=== PATIENT | female | born 1975 | race Caucasian/White ===

== ENCOUNTER → 2017-04-13 | Outpatient (REF) | payer BC | LOC: M LAB REF 19:34 | PROVIDERS: ATTEND Physician Assistant | DX: J02.9 Acute pharyngitis, unspecified (principal) ==

== ENCOUNTER → 2017-07-28 | Outpatient (REF) | payer BC | LOC: M LAB REF 09:04 | PROVIDERS: ATTEND Physician Assistant | DX: J02.9 Acute pharyngitis, unspecified (principal) ==

== ENCOUNTER → 2017-12-25 | Outpatient (CLI) | payer OTHER | LOC: M WHC 12:49 | DX: Z12.31 Encounter for screening mammogram for malignant neoplasm of breast (principal) ==

== ENCOUNTER 2019-02-01 16:58 | Emergency (ER) | payer BC, OTHER ==
[~2019-02-01] VITALS: Ht 160 cm; Wt 77.3 kg
[2019-02-01 16:58] VITALS: BP 128/77
[2019-02-01] MEDS ORDERED: IBUPROFEN 800 MG TAB PO ONE (18:00)
--- NOTE | 2019-02-02 07:50 | REP ---
LEFT ANKLE, FOUR VIEWS: There is no evidence of an acute fracture, dislocation or intrinsic bone disease. IMPRESSION: No fracture or dislocation. Electronically Signed by Jimi Rose MD 02/02/2019 05:23 P
== END 2019-02-01 18:31 | disposition home or self-care (01) ==
LOC: M ED 16:58
DX: S90.812A Abrasion, left foot, initial encounter (principal); S93.402A Sprain of unspecified ligament of left ankle, initial encounter; W10.8XXA Fall (on) (from) other stairs and steps, initial encounter; Y92.018 Other place in single-family (private) house as the place of occurrence of the external cause; Z88.2 Allergy status to sulfonamides

== ENCOUNTER → 2019-03-10 | Outpatient (CLI) | payer BC ==
--- NOTE | 2019-03-10 14:21 | REPMRS ---
Patient History The patient states she has not had a clinical breast exam in over a year. Family history of endometrial cancer at age 40 in mother, pancreatic cancer at age 55 in father. Took hormonal contraceptives for 17 years. Digital Woman Screen Mammo: March 10, 2019 - Exam #: [id number] Bilateral CC and MLO view(s) were taken. Technologist: Ramona Carlos, Technologist Prior study comparison: December 25, 2017, digital woman screen mammo performed at [facility]. FINDINGS: The breast tissue is extremely dense which could obscure a lesion on mammography. There is an extremely dense symmetrical pattern of residual fibroglandular tissue. There has been no change in the appearance of the mammogram from the previous studies. There is no interval development of dominant mass, archetectural distortion, or microcalcific cluster suggestive of malignancy. 3-D tomosynthesis shows no additional findings. Assessment: BI-RADS/ACR category 1 mammogram. Negative Mammogram. Recommendation Routine screening mammogram of both breasts in 1 year (for women over age 40). This patient's Lifetime Breast Cancer RIsk is estimated at 10.3 %. This mammogram was interpreted with the aid of an FDA-approved computer-aided dectection system. Electronically Signed By: Gregory Miguel MD 03/10/19 [id number]
== END ==
LOC: M WHC 13:29
PROVIDERS: ATTEND Nurse Practitioner Women's Health
DX: Z12.31 Encounter for screening mammogram for malignant neoplasm of breast (principal)

== ENCOUNTER → 2020-03-11 | Outpatient (REF) | payer OTHER | LOC: M SFHCWAGY 18:18 | PROVIDERS: ATTEND Nurse Practitioner Family | DX: Z12.4 Encounter for screening for malignant neoplasm of cervix (principal); Z01.419 Encounter for gynecological examination (general) (routine) without abnormal findings ==

== ENCOUNTER → 2020-03-11 | Outpatient (CLI) | payer OTHER ==
--- NOTE | 2020-03-11 12:33 | REP ---
BILATERAL MAMMOGRAM WITH 3D TOMOSYNTHESIS: No family history of breast cancer. [facility] lifetime risk of breast cancer 10.2%. Comparison mammogram 03/10/2019 and 12/25/2017. Breast parenchyma is heterogeneously dense bilaterally. Volpara breast density is C. I suspect a new nodule in the lateral aspect of the right breast at about 9-o'clock position in the third of the breast. This measures about 1.3 cm in diameter. Otherwise no definite new mass is seen and there are no clustered microcalcifications. IMPRESSION: ACR 0 incomplete. Suspect new nodule right breast laterally at about the 9-o'clock position, 1.3 cm in diameter. Recommend spot compression views with ultrasound to further evaluate. This mammogram was interpreted with the aid of an FDA-approved computer-aided detection system. A. Negative x-ray reports should not delay biopsy if a dominant or clinically suspicious mass is present. B. Four to eight percent of cancers are not identified by x-ray. C. Adenosis and dense breasts may obscure an underlying neoplasm. The patient states she/he had a clinical breast exam in February 2020. The patient letter being requested is M0.
== END ==
LOC: M WHC 10:49
PROVIDERS: ATTEND Nurse Practitioner Family
DX: Z12.31 Encounter for screening mammogram for malignant neoplasm of breast (principal)

== ENCOUNTER → 2020-03-17 | Outpatient (CLI) | payer OTHER ==
[~2020-03-17] MED LIST: CIPR-249 PO; DICY10CA13 PO; FLAG500T PO
--- NOTE | 2020-03-17 14:14 | REP ---
DIGITAL DIAGNOSTIC UNILATERAL RIGHT BREAST MAMMOGRAPHY WITH CAD: FOCUSED RIGHT BREAST SONOGRAPHY: HISTORY: Screening mammography March 11, 2020 was BIRADS category 0 incomplete because of a suspected new nodular neodensity. Right breast mammography and sonography was recommended. Comparison is also made with prior mammography from March 10, 2019 and December 25, 2017. MAMMOGRAPHIC FINDINGS: Right breast parenchyma remains heterogeneously dense in a pattern which may inhibit the sensitivity of mammography. An equivocal nodular opacity is seen in the right breast upper outer quadrant on magnified focal spot compression views see 6 mm in diameter. Rolled CC non-mag views were obtained and on the medially rolled view, there is a nodular opacity similar to the findings on March 11, 2020. No spiculation or microcalcification is seen. No other mammographic finding. SONOGRAPHIC FINDINGS: Focused right breast sonography is performed in the upper outer quadrant. In the 8-o'clock position, 5 cm from the nipple, there is a 7 mm x 5 mm x 5 mm oval-shaped cyst. This is felt to account for the mammographic opacity. Heterogeneous fibroglandular background echotexture is seen. No other sonographic abnormality. IMPRESSION: BIRADS 2: BI-RADS/ACR category 2 mammogram. Benign Findings. BIRADS category 2 benign findings. Repeat screening bilateral mammography recommended in 1 year. This mammogram was interpreted with the aid of an FDA-approved computer-aided detection system. The patient states she had a clinical breast exam in February 2020 The patient letter being requested is M2 Dense. Electronically Signed by Trent Miguel MD 03/17/2020 03:00 P
== END ==
LOC: M WHC 10:02
PROVIDERS: ATTEND Nurse Practitioner Family
DX: N60.01 Solitary cyst of right breast (principal)

== ENCOUNTER 2020-04-15 14:50 | Emergency (ER) | payer OTHER ==
[~2020-04-15] VITALS: Ht 160 cm; Wt 76.5 kg
[2020-04-15 15:46] LABS: BASO % 0.4 % (0.0-1.0); EOS # 0.1 10^3/uL (0.0-0.5); EOS % 0.6 % (0.0-3.0); HEMATOCRIT 37.1 % (36.0-47.0); HEMOGLOBIN 12.5 g/dl (12.0-15.5); LYMPH # 1.1 10^3/uL (1.5-5.0); LYMPH % 9.8 % (24.0-44.0); MEAN CORPUSCULAR HEMOGLOBIN 29.8 pg (27.0-33.0); MEAN CORPUSCULAR HGB CONC 33.7 g/dl (32.0-36.5); MEAN CORPUSCULAR VOLUME 88.3 fl (80.0-96.0); MONO # 0.7 10^3/uL (0.0-0.8); MONO % 6.9 % (0.0-5.0); NEUTROPHILS # 8.8 10^3/uL (1.5-8.5); NEUTROPHILS % 81.9 % (36.0-66.0); PLATELET COUNT, AUTOMATED 215 10^3/uL (150-450); WHITE BLOOD COUNT 10.8 10^3/uL (4.0-10.0)
[2020-04-15 16:11] LABS: ALBUMIN 3.4 GM/DL (3.2-5.2); BILIRUBIN,DIRECT 0.2 MG/DL (0.0-0.2); BILIRUBIN,TOTAL 0.7 MG/DL (0.2-1.0); TOTAL PROTEIN 6.8 GM/DL (6.4-8.2)
[2020-04-15] MEDS ORDERED: DICYCLOMINE 10 MG CAP PO ONE (16:15)
[2020-04-15] MEDS ORDERED: ISOVUE-370 76% 100ML VIAL As Ordered ONE (16:54)
--- NOTE | 2020-04-15 18:13 | REPVR ---
PROCEDURE INFORMATION: Exam: CT Abdomen And Pelvis With Contrast Exam date and time: 04/15/2020 5:20 PM Age: 44 years old Clinical indication: Abdominal pain; Localized; Left lower quadrant (llq); Additional info: Llq abd pain, elev wbc TECHNIQUE: Imaging protocol: Computed tomography of the abdomen and pelvis with intravenous contrast. Radiation optimization: All CT scans at this facility use at least one of these dose optimization techniques: automated exposure control; mA and/or kV adjustment per patient size (includes targeted exams where dose is matched to clinical indication); or iterative reconstruction. Contrast material: ISOVUE 370; Contrast volume: 100 ml; Contrast route: INTRAVENOUS (IV); COMPARISON: CT ABD PELVIS W/O FOL BY WIT 12/27/2015 2:41 PM FINDINGS: Liver: There is a 10 mm cyst in the left liver which is unchanged, most likely a simple cyst. Gallbladder and bile ducts: There are questionable small gallstones in the neck of the gallbladder. No pericholecystic inflammatory change or biliary ductal dilatation. Pancreas: Normal. No ductal dilation. Spleen: Normal. No splenomegaly. Adrenals: Normal. No mass. Kidneys and ureters: Normal. No hydronephrosis. Stomach and bowel: There are multiple colonic diverticula. There is diverticulitis of the proximal sigmoid colon in the left pelvis, with an inflamed diverticulum, adjacent fat stranding, trace fluid in the distal pericolic gutter, and wall thickening. No bowel dilatation to indicate obstruction. No pneumatosis. No free air. No rim enhancing abscess. Appendix: No evidence of appendicitis. Intraperitoneal space: See "Stomach and bowel" finding. Vasculature: There are left pelvic phleboliths. Lymph nodes: Unremarkable. No enlarged lymph nodes. Bladder: Unremarkable as visualized. Reproductive: There are bilateral tubal ligation clips. The endometrium appears thickened, approximately 18 mm. This appears new compared to 12/27/2015. There is also heterogeneous density in the endometrium of uncertain etiology and significance. Small amount of free fluid in the pelvis. Bones/joints: No acute osseous abnormality. Small sclerotic lesions in the left proximal femur are unchanged and consistent with bone islands. Soft tissues: Unremarkable. IMPRESSION: 1. Proximal sigmoid diverticulitis with adjacent fat stranding, trace free fluid, and wall thickening. No free air, abscess, or bowel obstruction. 2. Endometrial wall thickening with heterogeneous density, measuring up to 18 mm, new since 12/27/2015. Recommend follow-up pelvic ultrasound. This is most likely from endometrial hyperplasia, but other etiologies including neoplasm cannot be excluded at this time. 3. Questionable small gallstones in the gallbladder. No biliary ductal dilatation or pericholecystic inflammatory change. Electronically signed by: Angelika Cagle On 04/15/2020 18:12:58 PM
[2020-04-15] MEDS ORDERED: CIPR-249 PO (18:45)
[2020-04-15] MEDS ORDERED: FLAG500T PO (18:45)
[2020-04-15] MEDS ORDERED: CIPROFLOXACIN 500MG TABLET PO ONE (18:45)
[2020-04-15] MEDS ORDERED: DICY10CA13 PO (18:45)
[2020-04-15] MEDS ORDERED: metroNIDAZOLE (FLAGYL) 500MG TABLET PO ONE (18:45)
[2020-04-15 18:58] VITALS: BP 109/52
--- NOTE | 2020-04-16 07:49 | REP ---
KUB ABDOMEN AND PELVIS: KUB film of abdomen and pelvis is performed. Air is scattered throughout nondilated bowel loops in the abdomen. Bowel gas pattern is nonspecific with no compelling evidence for small bowel obstruction. A metallic coil is seen in the right adnexa as well as in the left adnexa. There are a couple of phleboliths in the inferior left pelvis. IMPRESSION: Nonspecific bowel gas pattern with no compelling evidence for obstruction. Electronically Signed by Jimi Rose MD 04/18/2020 09:54 A
--- NOTE | 2020-04-19 11:00 | ED PDOC ---
Post-Departure Follow-Up ct abd/p faxed tp ciera lynn for fu Parisa Huynh MD Apr 19, 2020 11:00
== END 2020-04-15 19:01 | disposition home or self-care (01) ==
LOC: M ED 14:50
DX: K57.32 Diverticulitis of large intestine without perforation or abscess without bleeding (principal); R93.89 Abnormal findings on diagnostic imaging of other specified body structures; Z88.1 Allergy status to other antibiotic agents; Z88.2 Allergy status to sulfonamides
CPT/HCPCS: 36415; 74018; 74177; 80047; 80076; 83690; 84702; 85025; 99283; Q9967

== ENCOUNTER → 2020-07-14 | Outpatient (CLI) | payer OTHER ==
--- NOTE | 2020-07-14 16:09 | REP ---
INDICATION: R93.89 ENDOMETRIAL THICKENING COMPARISON: 12/14/2015, 06/09/2009 TECHNIQUE: Transabdominal pelvic ultrasound followed by transvaginal examination for better evaluation of the endometrium and adnexa with color Doppler evaluation of the ovaries. FINDINGS: Bladder is unremarkable and measures 11.6 x 8.4 x 6.6 cm. Normal heterogeneous anteverted uterus measures 8.9 x 3.0 x 4.6 cm. The endometrial complex measures 2.8 mm thickness. Few nabothian cysts identified in the lower uterine segment measuring up to 11 mm. Bilateral ovaries are normal in appearance and vascularity without evidence for torsion. Right ovary measures 1.7 x 1.4 x 1.2 cm; R I = 0.66. Left ovary measures 2.5 x 1.2 x 1.3 cm; R I = 0.50. No pelvic fluid or adnexal mass lesion. IMPRESSION: 1. Nabothian cysts measuring up to 11 mm. 2. Otherwise essentially normal pelvic ultrasound. <Electronically signed by Deon Boyer > 07/14/20 [id number]
== END ==
LOC: M WHC 14:55
PROVIDERS: ATTEND Nurse Practitioner Family
DX: R93.89 Abnormal findings on diagnostic imaging of other specified body structures (principal); N88.8 Other specified noninflammatory disorders of cervix uteri

== ENCOUNTER → 2021-03-10 | Outpatient (CLI) | payer OTHER ==
--- NOTE | 2021-03-12 03:44 | REP ---
INDICATION: PAIN COMPARISON: None. TECHNIQUE: AP, lateral, bilateral oblique views of the right elbow. FINDINGS: No acute fracture or dislocation is appreciated. Joint spaces and surrounding soft tissues appear normal. Lateral view demonstrates normal positioning to the anterior and posterior fat pads without evidence for effusion/hemarthrosis. No subcutaneous emphysema or foreign body identified. IMPRESSION: Normal elbow radiographs. <Electronically signed by Deon Boyer > 03/12/21 [id number]
== END ==
LOC: M WUC 15:50
PROVIDERS: ATTEND Physician Assistant Medical
DX: M25.521 Pain in right elbow (principal)

== ENCOUNTER → 2022-10-12 | Outpatient (CLI) | payer OTHER | LOC: M WUC 15:10 | PROVIDERS: ATTEND Physician Assistant Medical | DX: M25.522 Pain in left elbow (principal) ==

== ENCOUNTER → 2023-08-27 | Outpatient (REF) | payer BC, OTHER ==
[~2023-08-27] MED LIST changes: +DICY-61 PO; -DICY10CA13 PO
== END ==
LOC: M PLALAB 15:56
PROVIDERS: ATTEND Obstetrics & Gynecology
DX: Z12.4 Encounter for screening for malignant neoplasm of cervix (principal)
CPT/HCPCS: 87624; G0123

== ENCOUNTER → 2023-08-27 | Outpatient (CLI) | payer BC | LOC: M WHC 14:09 | PROVIDERS: ATTEND Family Medicine | DX: Z12.31 Encounter for screening mammogram for malignant neoplasm of breast (principal) ==

== ENCOUNTER → 2024-09-02 | Outpatient (CLI) | payer BC | LOC: M WHC 14:00 | PROVIDERS: ATTEND Nurse Practitioner Family | DX: Z12.31 Encounter for screening mammogram for malignant neoplasm of breast (principal); R92.333 Mammographic heterogeneous density, bilateral breasts ==

== ENCOUNTER 2024-09-20 19:31 | Emergency (ER) | payer BC ==
[~2024-09-20] VITALS: Ht 162.6 cm; Wt 83.7 kg
[2024-09-20 19:34] VITALS: BP 144/74; TEMP 97.8; O2SAT 100
[2024-09-20] MEDS: FLUORESCEIN OPHTH 1MG STRIP OD ONE (20:00)
[2024-09-20] MEDS: TETRACAINE 0.5% OPHTH SOLN 4ML OD ONE (20:00)
[2024-09-20] MEDS ORDERED: ISOVUE-370 76% 100ML VIAL As Ordered ONE (20:24)
[2024-09-20] MEDS: ACETAMINOPHEN 500 MG TAB PO ONE (20:38)
[2024-09-21] MEDS ORDERED: ERYT5OIN25 OP (00:21)
[2024-09-21] MEDS: CIPROFLOXACIN 0.3% OPHTH SOLN 2.5ML OD ONE (00:25)
[2024-09-21] MEDS: ERYTHROMYCIN OPHTH OINT OD ONE (00:25)
== END 2024-09-21 01:03 | disposition home or self-care (01) ==
LOC: M ED 19:31
DX: S05.41XA Penetrating wound of orbit with or without foreign body, right eye, initial encounter (principal); S05.01XA Injury of conjunctiva and corneal abrasion without foreign body, right eye, initial encounter; Y92.9 Unspecified place or not applicable; Y93.9 Activity, unspecified; Y99.9 Unspecified external cause status; Z88.2 Allergy status to sulfonamides; Z79.2 Long term (current) use of antibiotics; Z79.899 Other long term (current) drug therapy
CPT/HCPCS: 70481; 99283; Q9967

== ENCOUNTER → 2025-06-10 | Outpatient (CLI) | payer BC ==
[~2025-06-10] MED LIST changes: +ERYT5OIN25 OP
== END ==
LOC: M WUC 11:02
PROVIDERS: ATTEND Nurse Practitioner Family
DX: M54.50 Low back pain, unspecified (principal)